=== PATIENT | male | born 1980 | race Caucasian/White ===

== ENCOUNTER 2016-11-08 13:08 | Emergency (ER) | payer OTHER, MEDICAID ==
[2016-11-08 13:35] VITALS: BP 129/89; PULSE 90; RESP 16; TEMP 98.1; O2SAT 95
--- NOTE | 2016-11-08 14:28 | UCPHY ---
H & P Time Seen by Provider: 11/08/16 14:27 Patient Type: Established HPI/ROS: Chief complaint. Leg injury HPI. 36-year-old male leg injury verses hitting it on a water slide yesterday. Increased pain swelling to the medial aspect of his left leg. Hurts to walk. No previous injury. No other injuries. Complains of slight numbness to some of his toes since the injury ROS Constitutional. no fever/chills, no weakness Eyes. no problems with vision ENT. no sore throat, no nasal drainage Cardiovascular. no chest pain Respiratory. no shortness of breath, no cough Abdominal. no abdominal pain, no nausea/vomiting, no diarrhea . no problems urinating MS. Left lower leg pain Skin. no rash Lymph. no swollen glands Neuro. no headache, no dizziness, no difficulty walking or with speech Past Medical/Surgical History: Healthy Social History: , daily smoker, no alcohol Smoking Status: Current every day smoker Physical Exam: General Appearance: Alert well-developed male mild distress vital signs stable Eyes: Pupils equal and round no pallor or injection. ENT, Mouth: Mucous membranes are moist. Respiratory: There are no retractions, lungs are clear to auscultation. Cardiovascular: Regular rate and rhythm. Gastrointestinal: Abdomen is soft and nontender, no masses, bowel sounds normal. Neurological: Awake and alert, sensory and motor exams grossly normal. Skin: Warm and dry, no rashes. Musculoskeletal: Neck is supple nontender. Extremities mild swelling and bruising to the medial aspect just above the medial malleolus on the left leg. No tenderness to the knee, Achilles, foot Psychiatric: Patient is oriented X 3, there is no agitation. Constitutional: Initial Vital Signs Temperature (C) 36.7 C 11/08/16 13:29 Heart Rate 90 11/08/16 13:29 Respiratory Rate 16 11/08/16 13:29 Blood Pressure 129/89 H 11/08/16 13:29 O2 Sat (%) 95 11/08/16 13:29 O2 Delivery Mode Room Air Allergies/Adverse Reactions: metoclopramide HCl [From Reglan] Allergy (Verified 11/08/16 13:35) Home Medications: Medication Instructions Recorded Meloxicam 15 mg PO DAILY 10/25/15 traZODone [traZODONE 100MG (*)] 100 mg PO 10/25/15 Hydrocodone/APAP 5/325 [[place] 1 each PO Q4-6PRN PRN #14 tab 11/08/16 5/325 (*)] Medical Decision Making - Diagnostics Imaging: X-ray left tibia fibula area interpreted by me is normal without evidence of fracture dislocation ED Course/Re-evaluation: Re-evaluation and patient is stable Patient and I discussed imaging study results, treatment plan including criteria for return importance of follow-up and further evaluation. He expresses understanding and agreement Differential Diagnosis: I considered contusion, fracture, dislocation Departure - Departure Disposition: Home, Routine, Self-Care Clinical Impression: Contusion of leg, left Qualifiers: Encounter type: initial encounter Qualifier Code: (S80.12XA) Contusion of left lower leg, initial encounter Condition: Good Instructions: Contusion in Adults (ED) Additional Instructions: Ice and elevation next 24-48 hours. Ibuprofen 600 mg every 6 hours for discomfort. Hydrocodone in addition for pain. Activity as tolerated. Return for worsening symptoms. Recheck in 2-3 days if not improving Referrals: NONE *PRIMARY CARE P,. [Primary Care Provider] - As per Instructions DANIELA FUENTES [Doctor of Osteopathy] - 2-3 days, if not improved Prescriptions: Hydrocodone/APAP 5/325 [[place] 5/325 (*)] 1 each PO Q4-6PRN PRN #14 tab PRN Reason: Pain, Moderate - PQRS PQRS Measurement: 134: Depression screening and followup, PRIME MD-PHQ2 (12 years and older) Over the last 2 weeks, how often have you been bothered by any of the following problems? 1. Feeling down, depressed, or hopeless? 2. Little interest or pleasure in doing things? Patient answered no to both 1 and 2 130: Documentation of medications. Reviewed all patient medications, doses, route and frequency. 226: Do you smoke? yes--counselled to stop
--- NOTE | 2016-11-08 14:54 | DX ---
Left Tibia-Fibula, 4 Views, at 1:46 p.m. Clinical History: 36-year-old male who hit his left lower leg on waterslide, and has severe pain with weightbearing. Comparison Study: None. Findings: Bone mineralization is preserved. There is no lytic or blastic lesion, or acute fracture, d islocation, periostitis, or radiopaque foreign body. There is no ankle or suprapatellar joint effusio n. Impression: There is no acute osseous abnormality identified.
== END 2016-11-08 14:51 | disposition home or self-care (01) ==
LOC: CED 13:08
DX: S80.12XA Contusion of left lower leg, initial encounter (principal); F17.200 Nicotine dependence, unspecified, uncomplicated
CPT/HCPCS: 73590-PO; 99214-PO; G0463-PO

== ENCOUNTER 2016-12-06 18:55 | Emergency (ER) | payer MEDICAID, OTHER ==
[2016-12-06 21:16] VITALS: RESP 16; TEMP 97.9
[2016-12-06] MEDS ORDERED: KETOROLAC 30 MG/1 ML SDV IM ONE (22:02)
[2016-12-06] MEDS ORDERED: DIAZEPAM 10 MG TAB PO ONE (22:03)
[2016-12-06] MEDS ORDERED: HYDROCODONE/APAP 10/325 TAB PO ONE (22:03)
[2016-12-06] MEDS ORDERED: HYDROCODONE/APAP 5/325 TAB ONE (22:09)
[2016-12-06] MEDS ORDERED: DIAZEPAM 5 MG TAB ONE (22:10)
[2016-12-06] MEDS ORDERED: DIAZEPAM 5 MG PREPACK#4 BTL TAKEHOME ONE (22:43)
--- NOTE | 2016-12-06 22:46 | UCPHY ---
H & P Time Seen by Provider: 12/06/16 21:19 Patient Type: Established HPI/ROS: 36-year-old male presents complaining lower back pain radiating at times to his left posterior leg. No loss of bowel or bladder. No numbness or tingling in extremities Patient states pain started earlier while lifting his grandson. Review of systems, positive back pain General no fever no chills no weakness HEENT no eye pain no eye discharge. No eye redness, no sore throat Respiratory no cough, no shortness of breath Cardiac no chest pain, no peripheral edema GI no abdominal pain, no diarrhea, no constipation, no nausea, no vomiting no flank pain, no hematuria, no dysuria Musculoskeletal positive myalgias, no joint pain Heme no easy bruising, no easy bleeding Endo no polyuria, no polydipsia Skin no rashes, no pruritus Neuro no syncope, no dizziness, no headaches Psych is no suicidal ideation, no homicidal ideation Past Medical/Surgical History: Noncontributory Social History: Drinks alcohol, denies drug use Smoking Status: Current every day smoker Physical Exam: HEENT atraumatic normocephalic, extraocular muscles intact, anicteric Oropharynx negative for erythema negative exudate, tolerating her own secretions Neck supple no meningismus Lungs clear to auscultation bilaterally Heart regular rate and rhythm without murmur rub or gallop Abdomen nondistended normoactive bowel sounds soft nontender Back no CVA tenderness, no step-offs, positive midline lumbar spine tenderness, and paralumbar tenderness to the left Negative straight leg raise Extremities no cyanosis clubbing or edema Neuro alert and oriented, no focal deficits, gait and strength intact Constitutional: Initial Vital Signs Temperature (C) 36.6 C 12/06/16 21:13 Heart Rate 94 12/06/16 21:13 Respiratory Rate 16 12/06/16 21:13 Blood Pressure 138/68 H 12/06/16 21:13 O2 Sat (%) 94 12/06/16 21:13 O2 Delivery Mode Room Air Allergies/Adverse Reactions: metoclopramide Allergy (Verified 12/06/16 21:12) metoclopramide HCl [From Reglan] Allergy (Verified 12/06/16 21:12) Home Medications: Medication Instructions Recorded Diazepam [Valium 5 MG (*)] 5 mg PO TID PRN #15 tab 12/06/16 oxyCODONE/APAP 5/325 [Percocet 1 - 2 tab PO Q8 PRN #16 tab 12/06/16 5/325 (*)] Medical Decision Making ED Course/Re-evaluation: Patient seen and evaluated for back pain after lifting. Differential diagnosis Back contusion, back strain, disc herniation X-ray Loss of lordosis consistent with back spasm Impression Acute back strain In urgent care patient given diazepam 10 mg, Toradol 60 mg IM and Vicodin Discharge home Rx for diazepam #15. Rx for Percocet #16. - Data Points Medications Given: Discontinued Medications Hydrocodone Bitart/Acetaminophen ([place] 10/325) 1 tab PO EDNOW ONE Stop: 12/06/16 22:04 Last Admin: 12/06/16 22:20 Dose: 1 tab Hydrocodone Bitart/Acetaminophen ([place] 5/325mg Prepack#6) 1 btl TAKEHOME EDNOW ONE Stop: 12/06/16 22:44 Last Admin: 12/06/16 23:02 Dose: Not Given Diazepam (Valium) 10 mg PO EDNOW ONE Stop: 12/06/16 22:04 Last Admin: 12/06/16 22:20 Dose: 10 mg Diazepam (Valium 5 Mg Prepack#4) 1 btl TAKEHOME EDNOW ONE Stop: 12/06/16 22:44 Last Admin: 12/06/16 22:49 Dose: 1 btl Ketorolac Tromethamine (Toradol) 60 mg IM EDNOW ONE Stop: 12/06/16 22:03 Last Admin: 12/06/16 22:20 Dose: 60 mg Oxycodone/Acetaminophen (Percocet 5/325mg Prepack#4) 1 btl TAKEHOME EDNOW ONE Stop: 12/06/16 22:58 Last Admin: 12/06/16 23:02 Dose: 1 btl Departure - Departure Disposition: Home, Routine, Self-Care Clinical Impression: Acute low back pain Condition: Good Instructions: Hydrocodone/Acetaminophen (By mouth), Diazepam (By mouth), Low Back Strain (ED), Acute Low Back Pain (ED) Referrals: DANIELA FUENTES [Primary Care Provider] - As per Instructions Prescriptions: Diazepam [Valium 5 MG (*)] 5 mg PO TID PRN #15 tab PRN Reason: Spasms oxyCODONE/APAP 325 [Percocet 325 (*)] 1 - 2 tab PO Q8 PRN #16 tab PRN Reason: Pain, Severe - PQRS PQRS Measurement: na
[2016-12-06] MEDS: HYDROCOD/APAP 5/325 PREPACK#6 BTL TAKEHOME ONE ×2 (22:50→23:02)
[2016-12-06] MEDS ORDERED: OXYCODONE/APAP 5/325MG PREPACK#4 BTL TAKEHOME ONE (22:57)
[2016-12-06 23:01] VITALS: BP 123/74; PULSE 77; O2SAT 99
== END 2016-12-06 23:11 | disposition home or self-care (01) ==
LOC: CED 18:55
DX: M54.5 Low back pain (principal)
CPT/HCPCS: 72100-PO; 96372-PO; 99214-PO; G0463-PO; J1885

== ENCOUNTER 2017-03-04 15:51 | Emergency (ER) | payer MEDICAID ==
[2017-03-04 16:01] VITALS: BP 128/90; PULSE 68; RESP 16; TEMP 97.9; O2SAT 97
--- NOTE | 2017-03-04 16:04 | EDPHY ---
H & P Time Seen by Provider: 03/04/17 16:03 HPI/ROS: CHIEF COMPLAINT: Left foot pain HISTORY OF PRESENT ILLNESS: 3 days ago was carrying a heavy load at work wearing boots with insoles and stepped heavily sustaining instant pain in the arch of his left foot. Of note took about 9 months to recover from bilateral plantar fasciitis last year and only felt good and at baseline in April of 2016. Pain today's located in the left arch on the sole of the foot and is worse with weight-bearing or palpation. REVIEW OF SYSTEMS: No ankle leg toe or knee symptoms. PAST MEDICAL HISTORY: Umbilical hernia surgery General Appearance: Alert and conversant, cooperative. Achilles and bilateral malleoli of the ankle are nontender. Skin of the foot is intact. No warmth or discoloration or laceration. Ankle joint is stable and the patient has a visible arch at rest. Pain to palpation on the plantar surface of the foot over the instep. Normal toes including normal motor sensory and capillary refill. Has plantar flexion of foot with calf squeeze. Emergency Department course/MDM: Oral ibuprofen, x-ray of the left foot. Indication is pain after trauma. Orthopedic or radio producer referral. 1622: Left foot x-ray personally interpreted as normal. Results discussed with patient; NSAIDs, stiff soled shoe, rest as possible, has compression sleeve, ice and elevation when not walking on it, decrease time on feet/work for next 48 hours if possible. Smoking Status: Current every day smoker Constitutional: Initial Vital Signs Temperature (C) 36.6 C 03/04/17 15:56 Heart Rate 68 03/04/17 15:56 Respiratory Rate 16 03/04/17 15:56 Blood Pressure 128/90 H 03/04/17 15:56 O2 Sat (%) 97 03/04/17 15:56 O2 Delivery Mode Room Air Allergies/Adverse Reactions: metoclopramide HCl [From Reglan] Allergy (Severe, Verified 03/04/17 15:56) metoclopramide Allergy (Verified 03/04/17 15:56) Home Medications: Medication Instructions Recorded NK [No Known Home Meds] 03/04/17 MDM/Departure - MDM Medications Given: Discontinued Medications Ibuprofen (Motrin) 800 mg PO EDNOW ONE Stop: 03/04/17 16:14 Last Admin: 06/01/17 16:15 Dose: 800 mg - Depart Disposition: Home, Routine, Self-Care Clinical Impression: Other sprain of left foot, initial encounter Condition: Good Instructions: Foot Sprain (ED) Additional Instructions: Please followup with referral Podiatry or Ortho next week. Referrals: Chuy Self MD [Medical Doctor] - As per Instructions (ortho referral) DANIELA FUENTES [Primary Care Provider] - As per Instructions Prasanna Esquivel DPM [Doctor of Podiatric Medicine] - As per Instructions
[2017-03-04] MEDS ORDERED: IBUPROFEN 800 MG TAB PO ONE (16:07)
[2017-03-04] MEDS ORDERED: IBUPROFEN 200 MG TAB PO ONE ×2 (16:11→16:13)
== END 2017-03-04 16:34 | disposition home or self-care (01) ==
LOC: CED 15:51
DX: S93.692A Other sprain of left foot, initial encounter (principal); F17.200 Nicotine dependence, unspecified, uncomplicated; W18.41XA Slipping, tripping and stumbling without falling due to stepping on object, initial encounter; Y92.69 Other specified industrial and construction area as the place of occurrence of the external cause; Y99.8 Other external cause status; Y93.89 Activity, other specified
CPT/HCPCS: 73630-PO

== ENCOUNTER 2017-04-01 13:38 | Emergency (ER) | payer MEDICAID ==
[2017-04-01 13:43] VITALS: TEMP 97.9
--- NOTE | 2017-04-01 13:57 | EDPHY ---
H & P Time Seen by Provider: 04/01/17 13:41 HPI/ROS: CHIEF COMPLAINT: Fatigue, shortness of breath HISTORY OF PRESENT ILLNESS: This patient is a 37-year-old male who presents to the Emergency Department with multiple complaints including fatigue, subjective shortness of breath, and hypertension. He reports persistent shortness of breath and fatigue over the last few weeks. He states that his whole body feels "constricted" and weak. He denies wheezing, cough, or fever. He also reports moderate foot pain that he attributes to an exacerbation of plantar fasciitis. He complains of hypertension associated with the pain and is concerned that this may be contributing to his fatigue. He has been treated by a well digger previously for plantar fasciitis and plans to follow-up with a well digger to have this recent injury evaluated. REVIEW OF SYSTEMS: Constitutional: +fatigue, no fever, no chills Eyes: No visual changes ENT: No sore throat Respiratory: No cough, +shortness of breath Cardiac: No chest pain Gastrointestinal: No nausea, no vomiting, no abdominal pain Genitourinary: No hematuria, no dysuria Musculoskeletal: +foot injury, no leg pain or swelling Skin: No rash Neurological: No headache, no numbness, no weakness Psychiatric: No depression Past Medical/Surgical History: Plantar fasciitis Social History: . In the process of cutting down on smoking; he typically smokes 1 pack daily but has cut this down to 0.5 packs. Smoking Status: Current every day smoker Physical Exam: General Appearance: Alert, pleasant Eyes: Pupils equal and round, no conjunctival pallor or injection ENT, Mouth: Mucous membranes moist Neck: Normal inspection Respiratory: Lungs are clear to auscultation, no wheezing Cardiovascular: Regular rate and rhythm, no murmur Gastrointestinal: Abdomen is soft and non-tender Neurological: A&O, nonfocal, normal gait Skin: Warm and dry, no rash Extremities: Nontender, no pedal edema Psychiatric: Mood and affect normal Constitutional: Initial Vital Signs Temperature (C) 36.6 C 04/01/17 13:41 Heart Rate 78 04/01/17 13:41 Respiratory Rate 16 04/01/17 13:41 Blood Pressure 131/89 H 04/01/17 13:41 O2 Sat (%) 96 04/01/17 13:41 O2 Delivery Mode Room Air Allergies/Adverse Reactions: metoclopramide HCl [From Reglan] Allergy (Severe, Verified 04/01/17 13:40) metoclopramide Allergy (Verified 04/01/17 13:40) Home Medications: Medication Instructions Recorded NK [No Known Home Meds] 03/04/17 Medical Decision Making - Diagnostics EKG Interpretation: EKG interpreted by me reveals normal sinus rhythm, rate 68, no ST/T changes. Interpretation: normal EKG Imaging Results: Imaging Impressions Chest X-Ray 04/01/17 14:04 Impression: Interstitial disease +- airways disease. ED Course/Re-evaluation: 37-year-old male presents with complaints of subjective shortness of breath and fatigue, generalized weakness. He also complains of intermittent hypertension likely associated with pain secondary to an acute exacerbation of plantar fasciitis in his left foot. He has not been evaluated by his PCP for these concerns. At time of presentation, his blood pressure is non-concerning at 127/ 83. He has normal cardiac sounds, lungs are clear to auscultation. Normal inspection of the left foot with tenderness over the heel and the arch consistent with plantar fasciitis. Plan for labs to evaluate for anemia or electrolyte abnormalities, EKG, and chest x-ray given complaint of subjective SOB. IV established. 1L IV NS and 3ml IH DuoNeb administered. EKG obtained (as above) and is normal. Labs obtained. WBC is slightly elevated at 10.56. Hematocrit and hemoglobin levels are normal. Chemistries are unremarkable. Chest x-ray reviewed by myself is normal. The pt ambulated throughout the ED-- O2 sat remained 96% and he was not dyspneic or tachycardic. I discussed lab, EKG, and imaging results with the patient. I recommend that he be evaluated by his PCP for ongoing complaints of fatigue and a well digger for evaluation of his plantar fasciitis. He is agreeable to this. He is given Ibuprofen instructions and customary return precautions. He will be discharged home in good condition. Differential Diagnosis: Differential diagnosis includes though it is not limited to severe anemia, hypoglycemia, hyponatremia, pneumonia, pneumothorax, pulmonary embolism, aortic dissection, pericarditis, acute coronary syndrome. - Data Points Laboratory Results: Laboratory Results 04/01/17 14:10 04/01/17 14:10 04/01/17 04/01/17 14:10 14:10 WBC 10.96 10^3/uL H 10^3/uL (3.80-9.50) RBC 5.00 10^6/uL 10^6/uL (4.40-6.38) Hgb 15.8 g/dL g/dL (13.7-17.5) Hct 45.7 % % (40.0-51.0) MCV 91.4 fL fL (81.5-99.8) MCH 31.6 pg pg (27.9-34.1) MCHC 34.6 g/dL g/dL (32.4-36.7) RDW 12.7 % % (11.5-15.2) Plt Count 251 10^3/uL 10^3/uL (150-400) MPV 10.2 fL fL (8.7-11.7) Neut % (Auto) 67.6 % % (39.3-74.2) Lymph % (Auto) 19.7 % % (15.0-45.0) [place] % (Auto) 9.1 % % (4.5-13.0) Eos % (Auto) 2.7 % % (0.6-7.6) Baso % (Auto) 0.5 % % (0.3-1.7) Nucleat RBC Rel Count 0.0 % % (0.0-0.2) Absolute Neuts (auto) 7.40 10^3/uL H 10^3/uL (1.70-6.50) Absolute Lymphs (auto) 2.16 10^3/uL 10^3/uL (1.00-3.00) Absolute Monos (auto) 1.00 10^3/uL H 10^3/uL (0.30-0.80) Absolute Eos (auto) 0.30 10^3/uL 10^3/uL (0.03-0.40) Absolute Basos (auto) 0.06 10^3/uL 10^3/uL (0.02-0.10) Absolute Nucleated RBC 0.00 10^3/uL 10^3/uL (0-0.01) Immature Gran % 0.4 % % (0.0-1.1) Immature Gran # 0.04 10^3/uL 10^3/uL (0.00-0.10) Sodium 139 mEq/L mEq/L (134-144) Potassium 4.0 mEq/L mEq/L (3.5-5.2) Chloride 106 mEq/L mEq/L (97-110) Carbon Dioxide 19 mEq/l L mEq/l (22-31) Anion Gap 14 mEq/L mEq/L (8-16) BUN 15 mg/dL mg/dL (7-23) Creatinine 0.8 mg/dL mg/dL (0.7-1.3) Estimated GFR > 60 Glucose 92 mg/dL mg/dL (70-100) Calcium 9.5 mg/dL mg/dL (8.5-10.4) Medications Given: Discontinued Medications Albuterol/Ipratropium (Duoneb) 3 ml IH EDNOW ONE Stop: 04/01/17 14:04 Last Admin: 04/01/17 14:18 Dose: 3 ml Sodium Chloride (Ns) 1,000 mls @ 0 mls/hr IV ONCE ONE PRN Reason: Wide Open Stop: 04/01/17 14:19 Last Admin: 04/01/17 14:18 Dose: 1,000 mls Departure - Departure Disposition: Home, Routine, Self-Care Clinical Impression: Plantar fasciitis of left foot Dyspnea Qualifiers: Dyspnea type: shortness of breath Qualified Code(s): R06.02 - Shortness of breath Condition: Good Instructions: Plantar Fasciitis (ED), Dyspnea (ED) Additional Instructions: 1. Rest and ice your left foot. I recommend taking 600-800mg Ibuprofen every 6 hours as needed for pain and inflammation. Please also schedule a follow-up appointment with a well digger to have this evaluated. We have referred you to Dr. Monroy in [place]. 2. Follow-up with your primary care provider for further evaluation of your shortness of breath and fatigue. 3. Return to the Emergency Department if you experience severe weakness, worsening shortness of breath, chest pain, fever, or for other serious concerns. Referrals: DANIELA FUENTES [Primary Care Provider] - As per Instructions CHASE MONROY [Doctor of Podiatric Medicine] - As per Instructions Report Scribed for: Meredith Albert Report Scribed by: Evelyn Phipps Date of Report: 04/01/17 Time of Report: 13:49 Physician Review and Approval Statement: 04/01/17 13:49 Portions of this note were transcribed by a medical office receptionist assistant. I personally performed a history, physical exam, medical decision making, and confirmed accuracy of information the transcribed note.
[2017-04-01] MEDS ORDERED: IPRATROPIUM/ALBUTEROL 3 ML DEYVIAL IH ONE (14:03)
--- NOTE | 2017-04-01 14:12 | CPEKG ---
Heart Rate: 68 RR Interval: 882 P-R Interval: 168 QRSD Interval: 84 QT Interval: 368 QTC Interval: 392 P [place]: 10 QRS [place]: 39 T Wave [place]: 10 EKG Severity - NORMAL ECG - EKG Impression: SINUS RHYTHM Electronically Signed By: Meredith Albert 01-Apr-2017 15:14:05
[2017-04-01] MEDS ORDERED: NS 1,000 ML IV ONE (14:18)
[2017-04-01 14:27] LABS: % IMMATURE GRANULYOCYTES 0.4 % (0.0-1.1); ABSOLUTE IMMATURE GRANULOCYTES 0.04 10^3/uL (0.00-0.10); ADD DIFF? NO; ADD MORPH? NO; ADD SCAN? NO; ATYPICAL LYMPHOCYTE FLAG 10 (0-99); FRAGMENT RBC FLAG 0 (0-99); HEMATOCRIT 45.7 % (40.0-51.0); HEMOGLOBIN 15.8 g/dL (13.7-17.5); LEFT SHIFT FLG 0 (0-99); LIPEMIA HEMOLYSIS FLAG 90 (0-99); MEAN CELL HEMOGLOBIN 31.6 pg (27.9-34.1); MEAN CELL HEMOGLOBIN CONCENTR. 34.6 g/dL (32.4-36.7); MEAN CELL VOLUME 91.4 fL (81.5-99.8); MEAN PLATELET VOLUME 10.2 fL (8.7-11.7); PLATELET CLUMPS FLAG 0 (0-99); PLATELET COUNT 251 10^3/uL (150-400); RED CELL DISTRIBUTION WIDTH 12.7 % (11.5-15.2)
[2017-04-01 15:02] LABS: ANION GAP 14 mEq/L (8-16); CALCIUM 9.5 mg/dL (8.5-10.4); CARBON DIOXIDE 19 mEq/l (22-31); CHLORIDE 106 mEq/L (97-110); CREATININE 0.8 mg/dL (0.7-1.3); GLOMERULAR FILTRATION RATE > 60; GLUCOSE 92 mg/dL (70-100); SODIUM 139 mEq/L (134-144)
[2017-04-01 15:23] VITALS: BP 123/72; PULSE 64; RESP 18; O2SAT 95
== END 2017-04-01 15:25 | disposition home or self-care (01) ==
DX: R06.02 Shortness of breath (principal); M72.2 Plantar fascial fibromatosis; F17.200 Nicotine dependence, unspecified, uncomplicated